=== PATIENT | female | born 1955 | race Caucasian/White ===

== ENCOUNTER → 2017-07-24 | Outpatient (CLI) | payer BC ==
[~2017-07-24] MED LIST: ATOR20TA22 PO; IPRA15SP7 NS; LEVO75TA73 PO; MONT10TA PO; TRIA10.8
--- NOTE | 2017-07-25 08:24 | RADIOLOGY IMAGING REPORT ---
FACILITY: [facility] - [place] PATIENT NAME: DORIS BENITEZ : [id number] MR: [id number] V: [id number] EXAM DATE: ORDERING PHYSICIAN: FABIANA BROWN TECHNOLOGIST: Britt Rock PROCEDURE:BILATERAL DIGITAL SCREENING MAMMOGRAM WITH CAD ASSISTED INTERPRETATION & 3D TOMOSYNTHESIS COMPARISON:Prior mammograms 07/15/16, 04/27/15, 04/12/15, 04/12/14, 09/25/12, 03/11/11. INDICATIONS:SCREENING FINDINGS: Mildly heterogeneous fibroglandular tissue is seen throughout the breasts. The parenchymal pattern has remained stable allowing for difference in mammographic technique & patient positioning. There is no evidence of malignant appearing mass, malignant appearing calcifications or other secondary sign of malignancy in either breast. DIAGNOSTIC CATEGORY 1--NEGATIVE. RECOMMENDATIONS: ROUTINE MAMMOGRAM AND CLINICAL EVALUATION. IMPRESSION: BIRADS 1: Negative No significant abnormality is seen. Dictated by: Kayla Florez M.D. on 07/24/2017 at 16:35 Transcribed by: FARHEEN on 07/25/2017 at 8:10 Approved by: Kayla Florez M.D. on 07/25/2017 at 8:23 [facility]
== END ==
LOC: MAMO 01:54
PROVIDERS: ATTEND Nurse Practitioner Family
DX: Z12.31 Encounter for screening mammogram for malignant neoplasm of breast (principal)
CPT/HCPCS: 77063; 77067

== ENCOUNTER → 2018-08-14 | Outpatient (CLI) | payer BC ==
--- NOTE | 2018-08-14 16:12 | RADIOLOGY IMAGING REPORT ---
FAC[place] [facility] [place]IENT NAME: DORIS BENITEZ : [id number] MR: [id number] V: [id number] EXAM DATE: ORDERING PHYSICIAN: FABIANA BROWN TECHNOLOGIST: Britt Rock PROCEDURE: BILATERAL DIGITAL SCREENING MAMMOGRAM WITH CAD ASSISTED INTERPRETATION & 3D TOMOSYNTHESIS REASON FOR STUDY: Screening FAMILY HISTORY OF BREAST CANCER: Paternal Grandmother BREAST PROCEDURES/TREATMENTS: None COMPARISON: 07/24/17, 07/15/16, 04/27/15, 04/12/15, 04/12/14, 09/25/12 VIEWS OBTAINED: Bilateral 2D & 3D full field CC & MLO BREAST DENSITY: The breasts are heterogeneously dense which can obscure small masses. MAMMOGRAM FINDINGS: The parenchymal pattern has remained stable allowing for difference in mammographic technique & patient positioning. ASSESSMENT: BIRADS 1: Negative. DIAGNOSTIC CATEGORY 1--NEGATIVE. RECOMMENDATIONS: ROUTINE MAMMOGRAM AND CLINICAL EVALUATION. Dictated by: Kayla Florez M.D. on 08/14/2018 at 15:46 Transcribed by: MARIA DE JESUS on 08/14/2018 at 16:04 Approved by: Kayla Florez M.D. on 08/14/2018 at 16:11 [facility]
== END ==
LOC: MAMO 00:32
PROVIDERS: ATTEND Nurse Practitioner Family
DX: Z12.31 Encounter for screening mammogram for malignant neoplasm of breast (principal); Z80.3 Family history of malignant neoplasm of breast
CPT/HCPCS: 77063; 77067